=== PATIENT | female | born 1975 | race Caucasian/White ===

== ENCOUNTER 2022-09-14 20:33 | Outpatient (REF) | payer OTHER, SELFPAY ==
[2022-09-19 11:08] LABS: Age Gdln ACOG Testing Note (.); HPV Aptima Negative (Negative); IGP, Aptima HPV, rfx 16/18,45 Note (.)
== END 2022-09-14 20:34 | disposition home or self-care (01) ==
LOC: LAB 20:33
PROVIDERS: PCP Family Medicine; Visit Provider Physician Assistant
DX: Z12.4 Encounter for screening for malignant neoplasm of cervix (principal); Z11.51 Encounter for screening for human papillomavirus (HPV)
CPT/HCPCS: 87624; G0145

== ENCOUNTER 2022-10-05 11:12 | Outpatient (OUT) | payer OTHER, SELFPAY ==
--- NOTE | 2022-10-05 11:16 | MM_ITS ---
Patient: BILL ROA Exam Date: 10/05/2022 : 1975 Gender:F Ordering : JENNIFER Caceres . Admission #: [id number] Family : Non-Staff Physician Order #: [id number] CLICK HERE TO VIEW EXAM RADIOLOGY REPORT PROCEDURE: MM TOMOSYNTHESIS SCREENING BI COMPARISON: [facility] MAMM SAM[facility] DIAG W CAD, 07/25/2016. [facility] MAMM SAMANTHA DIAG W CAD DIG, 09/13/2013. INDICATIONS: Screening mammogram Z12.31 Calculator Name NCI Breast Cancer Risk Assessment Tool 5 Year Breast Cancer Risk 2.10% Lifetime Breast Cancer Risk 18.10% Personal Breast Cancer No Personal Ovarian Cancer No Treatments None Family Cancers Mother with breast cancer at age 50; Aunt-maternal with breast cancer at age 45; Aunt-maternal with colon cancer at age 52. LOCATION: [facility] BREAST COMPOSITION: Extremely dense, which lowers the sensitivity of mammography. FINDINGS: DIAGNOSTIC CATEGORY 2--BENIGN FINDING: RIGHT BREAST: No significant suspicious finding. Scattered benign-appearing calcifications are present. No significant change has occurred. LEFT BREAST: No significant suspicious finding. Scattered benign-appearing calcifications are present. No significant change has occurred. RECOMMENDATIONS: ROUTINE MAMMOGRAM AND CLINICAL EVALUATION IN 12 MONTHS. PLEASE NOTE: A NORMAL MAMMOGRAM DOES NOT EXCLUDE THE POSSIBILITY OF BREAST CANCER. A CLINICALLY SUSPICIOUS PALPABLE LUMP SHOULD BE BIOPSIED. Dictated by: Malcolm Hendricks M.D. on 10/05/2022 at 13:48 Approved by: Malcolm Hendricks M.D. on 10/05/2022 at 13:52
== END 2022-10-05 11:13 | disposition home or self-care (01) ==
LOC: MAMMO 11:12
PROVIDERS: Visit Provider Physician Assistant
DX: Z12.31 Encounter for screening mammogram for malignant neoplasm of breast (principal); Z80.3 Family history of malignant neoplasm of breast; Z80.0 Family history of malignant neoplasm of digestive organs
CPT/HCPCS: 77063; 77067